=== PATIENT | female | born 1965 | race Caucasian/White ===

== ENCOUNTER → 2017-05-24 | Outpatient (CLI) | payer SELFPAY ==
--- NOTE | 2017-06-17 17:19 | P.PN ---
Progress Note - Text DATE OF SERVICE: 05/24/2017 REASON FOR CONSULTATION: Bariatric evaluation. HISTORY OF PRESENT ILLNESS: Melania Light is a 52-year-old female with past history of an adjustable gastric band placement 11/08/2004. She had weighed as much as 340 pounds. She had undergone a makeover in January 2007 when she got down 168 pounds with a tummy tuck. At her height of 5 foot 7, her ideal body weight 158 pounds. She has 144 pound weight loss despite a 28 pound weight gain from her lowest weight. Her last band access was 5 years ago. She is an active smoker. She does report mild reflux including nighttime cough. She now presents for an adjustment. PAST MEDICAL HISTORY: 1. Morbid obesity. 2. Body mass index of 53.3, initial. PAST SURGICAL HISTORY: 1. Adjustable gastric band placement. HOME MEDICATIONS: 1. Multivitamin. ALLERGIES: None on record. SOCIAL HISTORY: Active tobacco use. FAMILY HISTORY: No family history of ulcerative colitis disease or Crohn's disease. REVIEW OF ORGAN SYSTEMS: CONSTITUTIONAL: She had weighed as much as 340 pounds. She had undergone a makeover in January 2007 when she got down 168 pounds with a tummy tuck. At her height of 5 foot 7, her ideal body weight 158 pounds. She has 144 pound weight loss. Initial body mass index 53.6 down to 30.7. Lowest weight of 168 pounds since weight loss operation. HEENT: Denies any active troubles with vision or hearing. No troubles with swallowing. ENDOCRINE: No diabetes. No hypothyroidism. CARDIOVASCULAR: No reports of palpitations or heart attacks or chest pain. RESPIRATORY: No sleep apnea. No asthma. GI: Denies any bright red blood per rectum or constipation. Does have nighttime cough reflux. MUSCULOSKELETAL: Has lower back pain and joint pain. Has osteoarthritis of the hips and knees. NEURO: No headaches. No seizure disorders. PSYCH: No depression without suicidal ideation. No anxiety. RHEUMATOLOGIC: No lupus. No rheumatoid arthritis. HEMATOLOGIC: Denies any abnormal bleeding or bruising. No personal history of DVTs. SKIN: No rash. No skin cancer. PHYSICAL EXAM: VITAL SIGNS: Height 5 foot 7 inches, weight 196 pounds. BMI 30.7. Vital Signs Temp 98.5 F 05/24/17 14:50 Pulse 79 05/24/17 14:50 Resp 16 05/24/17 14:50 BP 154/71 05/24/17 14:50 Pulse Ox GENERAL: Well-developed female in no acute distress. HEENT: No scleral icterus. Extraocular movements grossly intact. Hears conversational speech. No nasal drainage. NECK: Supple without lymphadenopathy. Well-healed collar incision from previous thyroidectomy. CHEST: Nonlabored respirations with equal bilateral excursions. CARDIOVASCULAR: Regular rate. Distal 2+ pulses. ABDOMEN: Obese, soft, nontender, nondistended. MUSCULOSKELETAL: No clubbing, cyanosis, or edema. Gross strength 5/5 distal lower extremities. NEURO: No focal or lateralizing signs. Cranial nerves 2 through 12 grossly within normal limits. PSYCH: Appropriate affect. Alert and oriented to person, place and time. SKIN: Good skin turgor. Well perfused. ASSESSMENT: 1. Morbid obesity due to excess calories. 2. Body mass index of 30.7. 3. History of adjustable gastric band. 4. Need for adjustment for nighttime cough and reflux. 5. Status post massive weight loss 144 pounds. PLAN: 1. With her symptoms of nighttime cough, this is consistent with red zone. Recommend adjustment with fluid removal. PROCEDURE: Band adjustment. DESCRIPTION: After verbal consent, the patient was laid supine. The skin was cleansed with ChloraPrep. Using 0.5 mL of 1% lidocaine the skin of the port site was anesthetized. Using a noncoring 22-gauge needle, the band was accessed. 6 mL of fluid was identified of normal saline. 0.5 mL was removed. A total of 5.5 mL in the band. The patient tolerated the procedure well. Follow-up as needed.
== END | disposition home or self-care (01) ==
CPT/HCPCS: 99212